=== PATIENT | female | born 1980 | race Caucasian/White ===

== ENCOUNTER → 2017-04-20 | Outpatient (CLI) | payer OTHER ==
[~2017-04-20] MED LIST: FIORICET 325 MG1 TA1; LEVEMIR100 U/ML SC; LORTAB 5/500 501 TAB PO; MOTRIN 600600 MG/TAB PO; NOVOLOG 100U100 U/M1 SC; PERCOCET 325 MG1 TA2 PO; PRENATAL1 TA1 PO; SULFASALAZINE500 MG PO; SYNTHROID0.1 MG/TAB PO; SYNTHROID0.112 MG PO
== END ==
LOC: SUN.DIA 13:40
DX: O24.414 Gestational diabetes mellitus in pregnancy, insulin controlled (principal); Z3A.31 31 weeks gestation of pregnancy; E03.9 Hypothyroidism, unspecified; Z71.3 Dietary counseling and surveillance
CPT/HCPCS: G0108

== ENCOUNTER → 2017-04-25 | Outpatient (CLI) | payer OTHER | LOC: SUN.DIA 09:46 | DX: O24.414 Gestational diabetes mellitus in pregnancy, insulin controlled (principal); Z3A.32 32 weeks gestation of pregnancy; E03.9 Hypothyroidism, unspecified; Z71.3 Dietary counseling and surveillance | CPT/HCPCS: G0108 ==

== ENCOUNTER → 2017-05-01 | Outpatient (CLI) | payer OTHER | LOC: SUN.DIA 08:37 | DX: O24.414 Gestational diabetes mellitus in pregnancy, insulin controlled (principal); Z3A.32 32 weeks gestation of pregnancy; Z71.3 Dietary counseling and surveillance | CPT/HCPCS: G0108 ==

== ENCOUNTER 2017-05-15 10:22 | Inpatient (IN) | payer OTHER ==
[~2017-05-15] VITALS: Ht 162.6 cm; Wt 91.4 kg
[2017-06-08] MEDS ORDERED: NOVLOG SQ (11:23)
[2017-06-08] MEDS ORDERED: LEVEMIR100 U/ML SQ (11:23)
[2017-06-20] VITALS (18 sets, daily range): BP systolic 103–132; BP diastolic 62–89; PULSE 82–118; TEMP 97.1–97.8
[2017-06-20 09:59] LABS: BASO % 0.3 % (0.0-2.0); EOS # 0.1 (0.0-0.7); EOS % 0.9 % (0-4.0); GRAN # 6.6 (1.4-6.5); GRAN % 70.2 % (42.2-75.2); LYMPH # 1.8 (1.2-3.4); LYMPH % 19.5 % (20.0-51.0); MEAN CELL VOLUME 90 fl (80.0-100.0); MEAN CORPUSCULAR HGB CONC 32 g/dl (33.0-37.0); MEAN PLATELET VOLUME 11.6 fl (7.4-10.4); MONO # 0.7 (0.1-0.6); MONO % 7.8 % (1.7-9.3); PLATELET COUNT 218 K/mm3 (130-400); RED BLOOD COUNT 3.78 M/mm3 (4.10-5.30); REDCELL DISTRIBUTION WIDTH-CV 13.8 % (11.5-14.5)
[2017-06-20 10:07] LABS: HEMATOCRIT 33.9 % (37.0-47.0); MEAN CORPUSCULAR HEMOGLOBIN 29 pg (27.0-31.0)
[2017-06-20] MEDS ORDERED: PERCOCET 325 MG1 TA2 PO (10:07)
[2017-06-20] MEDS ORDERED: MOTRIN 800800 MG/TAB PO (10:07)
[2017-06-21] VITALS: BP 120/72; PULSE 82; TEMP 98.6
[2017-06-21 07:10] VITALS: BP 112/79; PULSE 88; TEMP 98.5
[2017-06-21 08:05] LABS: HEMATOCRIT 29.5 % (37.0-47.0); HEMOGLOBIN 9.6 g/dl (12.5-16.0)
[2017-06-21 16:50] VITALS: BP 123/76; PULSE 90; TEMP 98.6
[2017-06-21 20:06] VITALS: BP 124/72; PULSE 100; TEMP 98.4
[2017-06-22 07:15] VITALS: BP 126/80; PULSE 71; TEMP 97.9
== END 2017-06-22 10:05 | disposition home or self-care (01) | DRG 766 ==
LOC: LDR 06-20 07:06 → OB 06-20 08:53 → LDR 06-27 10:21
PROVIDERS: Obstetrics & Gynecology
PROC: 10D00Z1 Extraction of Products of Conception, Low, Open Approach (ICD-10-PCS; principal; 2017-06-20)
DX: O34.211 Maternal care for low transverse scar from previous cesarean delivery (principal); N85.8 Other specified noninflammatory disorders of uterus; O99.284 Endocrine, nutritional and metabolic diseases complicating childbirth; E05.90 Thyrotoxicosis, unspecified without thyrotoxic crisis or storm; O99.824 Streptococcus B carrier state complicating childbirth; O24.424 Gestational diabetes mellitus in childbirth, insulin controlled; Z3A.39 39 weeks gestation of pregnancy; Z37.0 Single live birth
CPT/HCPCS: J0690; J1885; J2270; J2370; J2405; J2590; J7120

== ENCOUNTER → 2017-05-18 | Outpatient (CLI) | payer OTHER | LOC: SUN.DIA 12:56 | DX: O24.414 Gestational diabetes mellitus in pregnancy, insulin controlled (principal); Z3A.35 35 weeks gestation of pregnancy; Z71.3 Dietary counseling and surveillance | CPT/HCPCS: G0108 ==

== ENCOUNTER → 2017-05-29 | Outpatient (CLI) | payer OTHER | LOC: SUN.DIA 09:01 | DX: O24.414 Gestational diabetes mellitus in pregnancy, insulin controlled (principal); Z3A.36 36 weeks gestation of pregnancy; E03.9 Hypothyroidism, unspecified; Z71.3 Dietary counseling and surveillance | CPT/HCPCS: G0108 ==

== ENCOUNTER 2017-06-08 10:52 | Outpatient (CLI) | payer OTHER ==
[~2017-06-08] VITALS: Ht 160 cm; Wt 90.5 kg
[2017-06-08 11:14] VITALS: BP 128/79; PULSE 110; TEMP 98.1
[2017-06-08] MEDS ORDERED: NOVLOG SQ (11:23)
[2017-06-08] MEDS ORDERED: LEVEMIR100 U/ML SQ (11:23)
[2017-06-08 11:45] VITALS: BP 128/79; PULSE 110; TEMP 98.2
== END 2017-06-08 12:25 | disposition home or self-care (01) ==
LOC: LDRO 10:52
DX: Z34.83 Encounter for supervision of other normal pregnancy, third trimester (principal); Z3A.37 37 weeks gestation of pregnancy
CPT/HCPCS: J7030

== ENCOUNTER 2017-07-18 09:51 | Emergency (ER) | payer OTHER ==
[~2017-07-18] VITALS: Ht 160 cm; Wt 82.7 kg
[~2017-07-18 09:51] MED LIST changes: +LEVEMIR100 U/ML SQ; +MOTRIN 800800 MG/TAB PO; +NOVLOG SQ
[2017-07-18 09:59] VITALS: BP 124/85; TEMP 98.8
[2017-07-18 10:42] LABS: COLLECTION METHOD CLEAN CATCH
[2017-07-18 10:48] LABS: PH 6 (5-8); SQUAMOUS EPITHELIAL 0-2 /hpf; URINE APPEARANCE Clear; URINE BACTERIA None Seen /hpf; URINE BILIRUBIN Negative (NEGATIVE); URINE BLOOD Negative (NEGATIVE); URINE COLOR Yellow; URINE GLUCOSE Negative (NEGATIVE); URINE KETONE Negative (NEGATIVE); URINE LEUKOCYTE ESTERASE Trace (NEGATIVE); URINE NITRATE Negative (NEGATIVE); URINE PROTEIN(semi-quant) Negative (NEGATIVE); URINE RBC 0-2 /hpf; URINE UROBILINOGEN Negative (NEGATIVE)
[2017-07-18 10:50] LABS: BASO % 0.3 % (0.0-2.0); EOS # 0.2 (0.0-0.7); EOS % 2.1 % (0-4.0); GRAN # 7.4 (1.4-6.5); GRAN % 70.3 % (42.2-75.2); HEMATOCRIT 41.4 % (37.0-47.0); HEMOGLOBIN 13.2 g/dl (12.5-16.0); LYMPH # 2.1 (1.2-3.4); LYMPH % 20.2 % (20.0-51.0); MEAN CELL VOLUME 89 fl (80.0-100.0); MEAN CORPUSCULAR HEMOGLOBIN 29 pg (27.0-31.0); MEAN CORPUSCULAR HGB CONC 32 g/dl (33.0-37.0); MEAN PLATELET VOLUME 9.4 fl (7.4-10.4); MONO # 0.7 (0.1-0.6); MONO % 6.8 % (1.7-9.3); PLATELET COUNT 286 K/mm3 (130-400); RED BLOOD COUNT 4.63 M/mm3 (4.10-5.30); REDCELL DISTRIBUTION WIDTH-CV 14.2 % (11.5-14.5)
[2017-07-18 10:59] LABS: ALBUMIN 4.4 gm/dL (3.5-5.0); BILIRUBIN,TOTAL 0.5 mg/dL (0.0-1.0); C-REACTIVE PROTEIN 0.9 mg/dL (0.0-0.9); CALCIUM 9.6 mg/dL (8.4-10.2); CREATININE, serum 0.69 mg/dL (0.52-1.25); POTASSIUM 4.2 mmol/L (3.4-5.0); TOTAL PROTEIN 7.5 gm/dL (6.4-8.2)
[2017-07-18] MEDS ORDERED: CARAFATE 1GM1 G PO (12:44)
[2017-07-18] MEDS ORDERED: ZOFRAN ODT4 MG PO (12:44)
[2017-07-18 13:11] VITALS: PULSE 84
== END 2017-07-18 13:12 | disposition home or self-care (01) ==
LOC: COL.ER 09:51
PROVIDERS: Physician Assistant
DX: K29.70 Gastritis, unspecified, without bleeding (principal); E03.9 Hypothyroidism, unspecified; Z90.49 Acquired absence of other specified parts of digestive tract
CPT/HCPCS: J1170; J2405; J7030; Q9967

== ENCOUNTER 2020-02-03 15:33 | Outpatient (CLI) | payer MEDICAID, OTHER ==
[~2020-02-03 15:33] MED LIST changes: +CARAFATE 1GM1 G PO; +ZOFRAN ODT4 MG PO
== END 2020-02-06 ==
LOC: COL.RAD
DX: G62.9 Polyneuropathy, unspecified (principal)

== ENCOUNTER → 2020-03-19 | Outpatient (CLI) | payer MEDICAID, OTHER | LOC: COL.RAD 09:59 | DX: R51.9 Headache, unspecified (principal) | CPT/HCPCS: A9585 ==

== ENCOUNTER 2020-07-07 08:27 | Emergency (ER) | payer MEDICAID ==
[~2020-07-07] VITALS: Ht 157.5 cm; Wt 90.9 kg
[2020-07-07 08:32] VITALS: BP 149/81; TEMP 97.9
[2020-07-07] MEDS ORDERED: LEXAPRO 10MG10 MG PO (09:32)
[2020-07-07] MEDS ORDERED: ZITHROMAX Z PA250 MG PO (10:01)
[2020-07-07] MEDS ORDERED: PREDNISONE20 MG PO (10:01)
[2020-07-07 10:20] VITALS: PULSE 89
== END 2020-07-07 10:20 | disposition home or self-care (01) ==
LOC: COL.ER 08:27
DX: J20.9 Acute bronchitis, unspecified (principal); Z20.822 Contact with and (suspected) exposure to COVID-19; Z79.890 Hormone replacement therapy

== ENCOUNTER → 2020-10-05 | Outpatient (CLI) | payer OTHER ==
[~2020-10-05] MED LIST changes: +LEXAPRO 10MG10 MG PO; +PREDNISONE20 MG PO; +ZITHROMAX Z PA250 MG PO
== END ==
LOC: COL.RAD 07:47
DX: R74.8 Abnormal levels of other serum enzymes (principal); Z90.49 Acquired absence of other specified parts of digestive tract

== ENCOUNTER → 2022-01-06 | Outpatient (CLI) | payer OTHER ==
[~2022-01-06] MED LIST changes: +AMOXICILLIN 50500 MG PO
== END ==
LOC: COL.RAD 13:33
DX: R06.02 Shortness of breath (principal)

== ENCOUNTER → 2022-02-07 | Outpatient (CLI) | payer OTHER | LOC: COL.PUL 09:44 | DX: R06.02 Shortness of breath (principal) | CPT/HCPCS: J7674 ==

== ENCOUNTER → 2022-03-02 | Outpatient (CLI) | payer OTHER | LOC: ZCOL.LAB 11:06 | DX: R06.02 Shortness of breath (principal) ==